=== PATIENT | male | born 1965 | race American Indian/Alaskan Native ===

== ENCOUNTER 2024-07-18 10:09 | Emergency (ER) | payer MEDICAID, SELFPAY ==
[2024-07-18 10:23] VITALS: BP 138/71; PULSE 85; RESP 19; TEMP 36.9; O2SAT 96; BMI 30.1
--- NOTE | 2024-07-18 10:35 | XR_ITS ---
Examination: CT abdomen and pelvis without contrast. Coronal 3-D reconstructions. Sagittal 2-D reconstructions. Date and time of exam:July 18, 2024 1039 hours Comparison March 22, 2022 INDICATIONS: Lower pelvic pain with burning urination beginning 2 days ago CTDI: vol (mGy): 9.50 DLP: (mGycm): 554 Technique: Axial images of the abdomen have been obtained, 3 mm slice thickness Intravenous contrast material has not been administered. Low dose protocols were performed. One or more of the following dose reduction techniques were used; automated exposure control, adjustment of the mA and/or KV according to patient size, use of iterative reconstruction technique. Findings: No focal liver or splenic lesions Contracted gallbladder No pancreatic mass 10 mm fat-containing right adrenal nodule Mild bilateral renal parenchymal scar formation No renal or ureteral calculi, no hydronephrosis Aorta normal size Appendix is not visualized No bowel obstruction Colonic diverticulosis Mild acute diverticulitis sigmoid colon axial image 168 No peridiverticular abscess Contracted urinary bladder Transverse prostate dimension 3.9 cm Advanced diffuse lumbar degenerative disc disease IMPRESSION: Mild bilateral renal parenchymal scar formation No renal or ureteral calculi, no hydronephrosis Mild acute diverticulitis sigmoid colon, no peridiverticular abscess
--- NOTE | 2024-07-18 10:48 | EDNOTE_ITS ---
ED Abdominal Pain RME/HPI General Chief Complaint: Abdominal Pain Stated complaint: BURNING LOWER ABD PAIN X YESTERDAY; NAUSEA Time seen by provider: 07/18/24 10:12 Arrival date/time: 07/18/24 10:09 This is a 59-year-old male past medical history of BPH, diverticulosis presents to the emergency department with complaints of lower suprapubic abdominal pain and irregular urinating. Mild nausea experienced yesterday. However no nausea no vomiting no fever no flank pain today. Patient is here for medical exam due to having a procedure for a circumcision on Sunday and requesting to be well before then does not want to cancel his procedure. No other concerns. Source: patient Limitations: no limitations Related Data Home Medications ?Medication ?Instructions ?Recorded ?Confirmed tamsulosin 0.4 mg capsule (Flomax) 0.4 mg PO QDAY 09/24/21 09/24/21 Previous Rx's ?Medication ?Instructions ?Recorded budesonide 180 mcg/actuation 2 inh inhalation BID #1 ea 10/05/21 breath activated powder inhaler promethazine-DM 6.25 mg-15 mg/5 mL 5 ml PO Q6H PRN cough #473 mL 10/05/21 oral syrup hydrocodone 7.5 mg-acetaminophen 1 tab PO QID PRN pain #12 tabs 03/22/22 325 mg tablet amoxicillin 875 mg-potassium 1 tab PO BID 10 days #20 tabs 07/18/24 clavulanate 125 mg tablet ibuprofen 800 mg tablet (IBU) 800 mg PO Q8H #20 tabs 07/18/24 Allergies Allergy/AdvReac Type Severity Reaction Status Date / Time pseudoephedrine Allergy Mild Rash Verified 07/18/24 10:11 Sulfa (Sulfonamide Allergy Verified 07/18/24 10:11 Antibiotics) Review of Systems Review of Systems Systems Reviewed: All systems reviewed, normal except as documented Narrative Review of Systems: Gen: No fever, no chills, no weight loss EYES: No discharge, no visual changes, no pain HEENT: No ear pain, no congestion, no sore throat PULM: No shortness of breath, no cough, no congestion CV: No chest pain, no dyspnea on exertion, no palpitations GI: No nausea, no vomiting, no diarrhea, +lower pelvic pain pain, no constipati on : No frequency, no urgency, no dysuria Musc/skel: No joint pain, no back pain Skin: No rash Psyc: No hallucinations, no depression Heme/Lymph: No easy bleeding or bruising tendencies Neuro: No weakness, no headache ED Exam General Limitations: Present no limitations General appearance: Present alert and in no apparent distress Head Head exam: Present atraumatic Eye Eye exam: Present normal appearance, PERRL and EOMI ENT ENT exam: Present normal exam, normal oropharynx and mucous membranes moist Neck Neck exam: Present normal inspection, full ROM and trachea midline Chest Chest inspection: Present normal inspection and symmetric chest wall rise Respiratory Respiratory exam: Present normal lung sounds bilaterally Cardiovascular Cardiovascular exam: Present regular rate, normal rhythm and normal heart sounds Abdominal Exam Abdominal exam: Present soft and normal bowel sounds; Absent distention, tenderness or guarding Abdominal tenderness: Present LLQ, suprapubic and mild Extremities Exam Extremities exam: Present normal inspection and full ROM Back Exam Back exam: Present normal inspection and full ROM Neurological Exam Neurological exam: Present alert, oriented X3 and CN II-XII intact Psychiatric Psychiatric exam: Present normal affect and normal mood Skin Skin exam: Present warm, dry, intact and normal color Course Quality Measures none Orders Category Date Time Status CT abdomen pelvis wo con Stat Exams 07/18/24 10:35 Completed CBC Stat Lab 07/18/24 10:53 Completed CMP [Comprehensive Metabolic Panel] Stat Lab 07/18/24 10:53 Results Lipase Stat Lab 07/18/24 10:53 Results PSA [Prostate Specific Antigen] Stat Lab 07/18/24 10:53 Received UA [Urinalysis] Stat Lab 07/18/24 10:55 Completed Vital Signs Vital signs: Vital Signs Temperature 98.5 F 07/18/24 10:23 Pulse Rate 85 07/18/24 10:23 Respiratory Rate 19 07/18/24 10:23 Blood Pressure 138/71 H 07/18/24 10:23 Pulse Oximetry (%) 96 07/18/24 10:23 Oxygen Delivery Method Room Air 07/18/24 10:23 Abdominal Pain MDM MDM Narrative MDM Narrative:: This is a 59-year-old male past medical history of BPH, diverticulosis presents to the emergency department with complaints of lower suprapubic abdominal pain and irregular urinating. Mild nausea experienced yesterday. However no nausea no vomiting no fever no flank pain today. Patient is here for medical exam due to having a procedure for a circumcision on Sunday and requesting to be well before then does not want to cancel his procedure. No other concerns. CT abdomen pelvis demonstrates acute diverticulosis no abscess formation. Patient does not have any systemic symptoms no fever no chills no rigors no nausea or vomiting. I will treat patient with Augmentin for 10 days he is to follow-up with his PCP. Strict ER precautions given to return if there is any worsening symptoms or change in condition. Patient data External records reviewed:: [facility] previous records Clinical information provided by:: patient Social determinants that could affect healthcare access:: none Patient has the following chronic illnesses:: BPH, diverticulosis How is presenting disease/condition affected by chronic disease/condition?: exacerbated by Evaluation data The following diagnostics were reviewed and interpreted by me:: lab results and radiology exam(s) Lab and/or radiology exams considered but not ordered:: Yes Interpretation Summary: Examination: CT abdomen and pelvis without contrast. Coronal 3-D reconstructions. Sagittal 2-D reconstructions. Date and time of exam:July 18, 2024 1039 hours Comparison March 22, 2022 INDICATIONS: Lower pelvic pain with burning urination beginning 2 days ago CTDI: vol (mGy): 9.50 DLP: (mGycm): 554 Technique: Axial images of the abdomen have been obtained, 3 mm slice thickness Intravenous contrast material has not been administered. Low dose protocols were performed. One or more of the following dose reduction techniques were used; automated exposure control, adjustment of the mA and/or KV according to patient size, use of iterative reconstruction technique. Findings: No focal liver or splenic lesions Contracted gallbladder No pancreatic mass 10 mm fat-containing right adrenal nodule Mild bilateral renal parenchymal scar formation No renal or ureteral calculi, no hydronephrosis Aorta normal size Appendix is not visualized No bowel obstruction Colonic diverticulosis Mild acute diverticulitis sigmoid colon axial image 168 No peridiverticular abscess Contracted urinary bladder Transverse prostate dimension 3.9 cm Advanced diffuse lumbar degenerative disc disease IMPRESSION: Mild bilateral renal parenchymal scar formation No renal or ureteral calculi, no hydronephrosis Mild acute diverticulitis sigmoid colon, no peridiverticular abscess Medications / Prescriptions Medications or Prescriptions considered but not ordered:: Rx sent Medication administrations:: No Consultations Consultation(s) initiated? (list below): No Diagnosis Differential diagnosis abdominal pain: abdominal pain, constipation, diverticulitis, gastroenteritis, pancreatitis, small bowel obstruction and other (Urinary tract infection, enlarged prostate.) Most likely diagnosis given after review of the tests above:: Diverticulitis treatment outpatient Admission Indicated Admission indicated?: not indicated Admission Request Was there a request for admission?: No Disposition Plan Disposition Plan: Discharge Discharge Attestation Discharge Attestation: The patient and all family members were given an opportunity to ask questions and understood the discharge instructions. Discharge instructions specifically effects, indications for sooner follow up or return to the emergency department, and the expected course of current diagnosis. Patient condition: Stable Discharge Plan Plan Patient Disposition: HOME (Self Care) Patient condition on transfer: Stable Prescriptions/Referrals Prescriptions/Med Rec: New amoxicillin-pot clavulanate 875-125 mg tablet 1 tab PO BID 10 Days Qty: 20 0RF ibuprofen [IBU] 800 mg tablet 800 mg PO Q8H Qty: 20 0RF No Action promethazine-DM 6.25-15 mg/5 mL syrup 5 ml PO Q6H PRN (Reason: cough) Qty: 473 0RF budesonide 180 mcg/actuation aerosol powdr breath activated 2 inh inhalation BID Qty: 1 0RF tamsulosin [Flomax] 0.4 mg Capsule 0.4 mg PO QDAY hydrocodone-acetaminophen 7.5-325 mg tablet 1 tab PO QID MDD 4 tabs PRN (Reason: pain) Qty: 12 0RF Referrals: Albert Britt MD [Physician] - In 1 week Problem List Clinical Impression: Diverticulitis Patient/Caregiver Discharge Instructions Discharge Activity: activity as tolerated Education Materials: ED Diverticulitis Additional Instructions: - It appears that you have diverticulitis again. Please start antibiotics as directed. And complete the course. Is very important that you follow-up with your doctor for your colonoscopy routine. Return to the emergency department if you develop any fever, nausea vomiting and worsening pain. Print Language: [place] Stand Alone Forms: Lidia Award Info., Patient Portal Info Letter PA/LEGAL SUPPORT SPECIALIST Supervising Physician PA/LEGAL SUPPORT SPECIALIST Supervising Physician: Dr Perez
[2024-07-18 11:04] LABS: Collection Type, Urine Clean Catch
[2024-07-18 11:11] LABS: Basophils # (Auto) 0.1 Thou/mm3 (0.0-0.2); Basophils % (Auto) 1 % (0-2.5); Eosinophils # (Auto) 0.2 Thou/mm3 (0.0-0.5); Eosinophils % (Auto) 2 % (0-10); Hemoglobin 15.7 g/dL (13.5-16.0); Immature Granulocytes % (Auto) 0 % (0-0); Immature Granulocytes Auto 0.02 Thou/mm3 (0.00-0.00); Lymphocytes # (Auto) 2.9 Thou/mm3 (1.0-4.8); Lymphocytes % (Auto) 30 % (10-50); Mean Corpuscular HGB Conc 34.9 g/dl (31.0-37.0); Mean Corpuscular Hemoglobin 30.4 pg (25.0-35.0); Mean Corpuscular Volume 87 fL (80-100); Monocytes # (Auto) 1.1 Thou/mm3 (0.0-0.8); Monocytes % (Auto) 11 % (0-12); Neutrophils # (Auto) 5.4 Thou/mm3 (1.8-7.7); Neutrophils % (Auto) 56 % (37-80); Nucleated Red Blood Cell % 0 /100 WBC (0); Platelet Count 219 Thou/mm3 (140-440); RDW Standard Deviation 43.8 fL (35.1-43.9); Red Blood Count 5.16 Miln/mm3 (4.50-5.90); White Blood Count 9.7 Thou/mm3 (3.8-10.6)
[2024-07-18 11:16] LABS: Bilirubin,Urine Negative (Negative); Blood,Urine Negative (Negative); Clarity,Urine Clear (Clear/Hazy); Color,Urine Lt-Yellow (Lt Yel-Yel); Glucose, Urine Negative (Negative); Ketones,Urine Negative (Negative); Leukocyte Esterase,Urine Negative (Negative); Nitrite,Urine Negative (Negative); PH,Urine 5.5 (5.0-7.0); Protein,Urine Negative (Neg - Trace); RBC,Urine 3 /hpf (0-3); Specific Gravity,Urine 1.018 (1.001-1.035); Squamous Epithelial Cell,Urine < 1 /hpf (0-5); Urobilinogen,Urine Negative mg/dL (0.0-1.0); WBC,Urine 1 /hpf (0-5)
[2024-07-18 11:50] LABS: Alanine Aminotransferase 15 U/L (10-49); Albumin, Serum 4.7 gm/dL (3.4-4.8); Albumin/Globulin Ratio 1.6 (1.2-2.2); Alkaline Phosphatase 73 U/L (46-116); Anion Gap 7 (7-16); Aspartate Amino Transferase 17 U/L (0-34); BUN/Creatinine Ratio 13 Ratio (12-20); Blood Urea Nitrogen 13 mg/dL (9-23); Carbon Dioxide 24.8 mMol/L (20.0-31.0); Chloride 105 mMol/L (98-107); Estimated Creatinine Clearance 88.3 mL/min (>60); Globulin 2.9 gm/dL (2.3-3.5); Glucose 101 mg/dL (74-106); Lipase 36 U/L (12-53); Osmolality,Calculated 273 (275-295); Potassium 3.8 mMol/L (3.4-5.1); Sodium 137 mMol/L (136-145); Total Protein 7.6 gm/dL (5.7-8.2); eGFR > 60 See Note
[2024-07-18 14:25] LABS: Bilirubin,Total 0.5 mg/dL (0.3-1.2)
[2024-07-18 15:27] LABS: Prostate Specific Antigen 0.69 ng/mL (0-4.00)
== END 2024-07-18 12:59 | disposition home or self-care (01) ==
PROVIDERS: Nurse Practitioner Primary Care; Emergency Provider Emergency Medicine; PCP Specialist
DX: K57.32 Diverticulitis of large intestine without perforation or abscess without bleeding (principal)
CPT/HCPCS: 36415; 74176; 80053; 81001; 83690; 84153; 85025; 99284

== ENCOUNTER 2024-10-04 12:47 | Emergency (ER) | payer MEDICAID, SELFPAY ==
[2024-10-04 13:33] VITALS: BP 145/91; PULSE 85; RESP 18; TEMP 37.1; O2SAT 96; BMI 29.3
--- NOTE | 2024-10-04 13:40 | XR_ITS ---
Examination: PA lateral chest 2 views Technique: Upright PA lateral chest 2 views Exam date and time: September 2024 1407 hrs. Comparison March 21, 2022 Indications: Onset shortness of breath today. Findings: Minor prominence of ventricle Mild ectasia thoracic aorta No pneumonia or pulmonary edema Impression: No pneumonia or pulmonary edema
[2024-10-04] MEDS: ALBUTEROL/IPRATROPIUM (Duoneb) RT SOL 3 ML NEBU INH (13:56)
[2024-10-04 13:59] VITALS: PULSE 86; RESP 19; O2SAT 100
--- NOTE | 2024-10-04 14:06 | EDNOTE_ITS ---
<Statement entered by Anyi Bailey MD - 10/05/24 13:50> As co-signing physician, I was present and available for consult prn. I concur with the plan and care as documented by the midlevel provider. Upper Respiratory Inf. RME/HPI General Chief Complaint: Flu Like Symptoms Stated Complaint: cough x 1wk Time Seen by Provider: 10/04/24 12:53 Source: patient Arrival date/time: 10/04/24 12:47 59-year-old male presents to the emergency department with complaints of intermittent cough for 1 week worsening. Patient does report that approximately 2 weeks ago he had a upper respiratory infection however never sought medical attention. He reports his symptoms cleared up however he has a lingering cough worsens with deep inspiration. Denies chest pain, dyspnea, no fever, no hemoptysis. Mode of arrival: ambulatory Limitations: no limitations Related Data Home Medications ?Medication ?Instructions ?Recorded ?Confirmed tamsulosin 0.4 mg capsule (Flomax) 0.4 mg PO QDAY 08/2809/24/21 Previous Rx's ?Medication ?Instructions ?Recorded budesonide 180 mcg/actuation 2 inh inhalation BID #1 e a 10/05/21 breath activated powder inhaler promethazine-DM 6.25 mg-15 mg/5 mL 5 ml PO Q6H PRN cou gh #473 mL 10/05/21 oral syrup hydrocodone 7.5 mg-acetaminophen 1 tab PO QID PRN pain #12 tabs 03/22/22 325 mg tablet ibuprofen 800 mg tablet (IBU) 800 mg PO Q8H #20 tabs 1 09/17/23 albuterol sulfate 90 mcg/actuation 2 puff inhalation Q 6H PRN 10/04/24 aerosol inhaler (Ventolin HFA) shortness of breath or wheezing #8.5 grams azithromycin 250 mg tablet See Rx Instructions PO .COM PLEX #6 10/04/24 (Zithromax) tabs prednisone 20 mg tablet 40 mg (2 x 20 mg) PO QDAY 4 days 10/04/24 #8 tabs Allergies Allergy/AdvReac Type Severity Reaction Status Date / Time pseudoephedrine Allergy Mild Rash Verified 10/04/24 12:49 Sulfa (Sulfonamide Allergy Verified 10/04/24 12:49 Antibiotics) Review of Systems Review of Systems Systems Reviewed: All systems reviewed, normal except as documented Narrative Review of Systems: Gen: No fever, no chills, no weight loss EYES: No discharge, no visual changes, no pain HEENT: No ear pain, no congestion, no sore throat PULM: No shortness of breath, + intermittent cough, no congestion CV: No chest pain, no dyspnea on exertion, no palpitations GI: No nausea, no vomiting, no diarrhea, no pain, no constipation : No frequency, no urgency, no dysuria Musc/skel: No joint pain, no back pain Skin: No rash Psyc: No hallucinations, no depression Heme/Lymph: No easy bleeding or bruising tendencies Neuro: No weakness, no headache ED Exam General Limitations: Present no limitations General appearance: Present alert and in no apparent distress Head Head exam: Present atraumatic Eye Eye exam: Present normal appearance, PERRL and EOMI ENT ENT exam: Present normal exam, normal oropharynx and mucous membranes moist Neck Neck exam: Present normal inspection, full ROM and trachea midline Chest Chest inspection: Present normal inspection and symmetric chest wall rise Respiratory Respiratory exam: Present wheezes (Mild expiratory wheeze); Absent stridor, accessory muscle use or prolonged expiratory phase Cardiovascular Cardiovascular exam: Present regular rate, normal rhythm and normal heart sounds Abdominal Exam Abdominal exam: Present soft and normal bowel sounds Extremities Exam Extremities exam: Present normal inspection and full ROM Back Exam Back exam: Present normal inspection and full ROM Neurological Exam Neurological exam: Present alert, oriented X3 and CN II-XII intact Psychiatric Psychiatric exam: Present normal affect and normal mood Skin Skin exam: Present warm, dry, intact and normal color Course Quality Measures none Orders Category Date Time Status XR chest 2V Stat Exams 10/04/24 13:40 Completed Albuterol/Ipratr Rt Evelyne [Duoneb Rt Evelyne] Med 10/04/24 13:40 Discontinued 3 ml INH X1 ONE predniSONE Med 10/04/24 13:40 Discontinued 40 mg PO X1 ONE Vital Signs Vital signs: Vital Signs Temperature 98.7 F 10/04/24 13:33 Pulse Rate 85 10/04/24 13:33 Respiratory Rate 18 10/04/24 13:33 Blood Pressure 145/91 H 10/04/24 13:33 Pulse Oximetry (%) 96 10/04/24 13:33 Oxygen Delivery Method Room Air 10/04/24 13:33 Upper Respiratory Infection MDM Narrative MDM Narrative:: 59-year-old male presented to the emergency department with complaints of cough lasting approximately 2 weeks, often associated with sputum production, low- grade fever, and wheezing. Symptoms consistent with bronchitis. Patient did receive prednisone and a DuoNeb while in ED. Patient did not have any acute hypoxemia. No respiratory distress. X-ray obtained to rule out any lung pathology. Negative for any pneumonia. Will discharge home with a burst of prednisone, azithromycin Z-Arvin, albuterol inhaler. Post follow-up with his PCP ER precautions to return if there is any worsening symptoms or change in condition Patient data External records reviewed:: [facility] previous records Clinical information provided by:: patient Social determinants that could affect healthcare access:: none Patient has the following chronic illnesses:: None How is presenting disease/condition affected by chronic disease/condition?: no chronic disease Evaluation data The following diagnostics were reviewed and interpreted by me:: radiology exam(s) Lab and/or radiology exams considered but not ordered:: Labs however no indication Interpretation Summary: Examination: PA lateral chest 2 views Technique: Upright PA lateral chest 2 views Exam date and time: September 2024 1407 hrs. Comparison March 21, 2022 Indications: Onset shortness of breath today. Findings: Minor prominence of ventricle Mild ectasia thoracic aorta No pneumonia or pulmonary edema Impression: No pneumonia or pulmonary edema Medications / Prescriptions Medications or Prescriptions considered but not ordered:: No Medication administrations:: Medication Administration History Discontinued Medications Albuterol/Ipratropium (Albuterol/Ipratropium (Duoneb) Rt Evelyne 3 Ml Nebu) 3 ml INH X1 ONE Stop: 10/04/24 13:41 Last Admin: 10/04/24 13:56 Dose: 3 ml Documented By: NANCI Prednisone (Prednisone 20 Mg Tablet) 40 mg PO X1 ONE Stop: 10/04/24 13:41 Last Admin: 10/04/24 15:05 Dose: 40 mg Documented By: All medications administered and effective Consultations Consultation(s) initiated? (list below): No Diagnosis Upper Respiratory Differential Diagnosis: upper respiratory infection, viral infection, bronchitis, influenza and pharyngitis Most likely diagnosis given after review of the tests above:: Bronchitis Admission Indicated Admission indicated?: not indicated Admission Request Was there a request for admission?: No Disposition Plan Disposition Plan: Discharge Discharge Attestation Discharge Attestation: The patient and all family members were given an opportunity to ask questions and understood the discharge instructions. Discharge instructions specifically effects, indications for sooner follow up or return to the emergency department, and the expected course of current diagnosis. Patient condition: Stable Discharge Plan Plan Patient Disposition: HOME (Self Care) Patient condition on transfer: Stable Prescriptions/Referrals Prescriptions/Med Rec: New azithromycin [Zithromax] 250 mg tablet See Rx Instructions .ROUTE .COMPLEX Qty: 6 0RF Rx Instructions: For 250 mg dose pack: take 500 mg today (day 1), then 250 mg for 4 days (days 2-5) prednisone 20 mg tablet 40 mg PO QDAY 4 Days Qty: 8 0RF albuterol sulfate [Ventolin HFA] 90 mcg/actuation HFA aerosol inhaler 2 puff inhalation Q6H PRN (Reason: shortness of breath or wheezing) Qty: 8.5 0RF No Action promethazine-DM 6.25-15 mg/5 mL syrup 5 ml PO Q6H PRN (Reason: cough) Qty: 473 0RF budesonide 180 mcg/actuation aerosol powdr breath activated 2 inh inhalation BID Qty: 1 0RF tamsulosin [Flomax] 0.4 mg Capsule 0.4 mg PO QDAY hydrocodone-acetaminophen 7.5-325 mg tablet 1 tab PO QID MDD 4 tabs PRN (Reason: pain) Qty: 12 0RF ibuprofen [IBU] 800 mg tablet 800 mg PO Q8H Qty: 20 0RF Referrals: Albert Britt MD [Primary Care Provider] - In 1 week Problem List Clinical Impression: Bronchitis Patient/Caregiver Discharge Instructions Discharge Activity: activity as tolerated Education Materials: ED Bronchitis with Wheezing (Adult) Additional Instructions: Your x-ray did not demonstrate any pneumonia. * Management typically includes fluids, rest, cough suppressants, and sometimes bronchodilators. * Start antibiotics 5 days. * Follow-up:if symptoms persist or worsen, especially if there is concern about complications like pneumonia. Print Language: Indonesian Stand Alone Forms: Lidia Award Info., Patient Portal Info Letter PA/LINK WIRE FABRIC MACHINE TENDER Supervising Physician PA/LINK WIRE FABRIC MACHINE TENDER Supervising Physician: Dr. Pennington
[2024-10-04] MEDS: predniSONE 20 MG TABLET 40 MG PO (15:05)
== END 2024-10-04 15:07 | disposition home or self-care (01) ==
PROVIDERS: Emergency Provider Emergency Medicine; PCP Family Medicine
DX: J40 Bronchitis, not specified as acute or chronic (principal)
CPT/HCPCS: 71046; 94640; 99283; A9270; J7512